=== PATIENT | male | born 1990 | race African-American/Black ===

== ENCOUNTER 2021-03-17 07:15 | Emergency (ER) | payer MEDICAID ==
[~2021-03-17] VITALS: Ht 188 cm; Wt 88.3 kg
[2021-03-17] MEDS ORDERED: KEPPRA750 MG PO (07:29)
[2021-03-17] MEDS ORDERED: ATIVAN1 MG PO (08:45)
[2021-03-17] MEDS ORDERED: ONDANSETRON ODT4 MG PO (08:45)
== END 2021-03-17 08:54 | disposition home or self-care (01) ==
LOC: ED 07:15
DX: F11.23 Opioid dependence with withdrawal (principal)
CPT/HCPCS: 99283; A9270; A9270-GY

== ENCOUNTER 2021-04-05 03:07 | Emergency (ER) | payer MEDICAID ==
[~2021-04-05] VITALS: Ht 188 cm; Wt 87.5 kg
[~2021-04-05 03:07] MED LIST: ATIVAN1 MG PO; KEPPRA750 MG PO; ONDANSETRON ODT4 MG PO
--- OUTSIDE RECORDS SUMMARY | 2021-04-05 03:16 | XMS ---
PreManage Notification: [facility] Security [employer] Events No recent Security Events currently on file CRITERIA MET - [facility] - 2 Visits in 30 Days CARE PROVIDERS There are no care providers on record at this time. [place] has no Care Guidelines for this patient. Khurram VISIT COUNT (12 MO.) [address] [place], [place] [address]Isaias TOTAL 6 NOTE: Visits indicate total known visits. ED/UCC VISIT TRACKING (12 MO.) [facility] [place] [facility] COMPLAINT: - N/V, DIAHRRHEA 03/17/2021 07:16 [facility] [place] TYPE: Emergency COMPLAINT: - HOT/COLD,BODY ACHES DIAGNOSES: - Opioid dependence with withdrawal 11/05/2020 13:27 [facility] TYPE: Emergency DIAGNOSES: 1. Bronchitis, not specified as acute or chronic 1. Cough 2. 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 Cough 1. Acute bronchitis, unspecified 2. Contact with and (suspected) exposure to COVID19 09/03/2020 03:12 [facility] TYPE: Emergency DIAGNOSES: 1. Unspecified convulsions 2. Diarrhea, unspecified 3. Vomiting, unspecified 4. Elevated white blood cell count, unspecified 5. [facility]okalemia [facility] COMPLAINT: - Boil on leg DIAGNOSES: 1. Cutaneous abscess of left lower limb 1. Other specified soft tissue disorders INPATIENT VISIT TRACKING (12 MO.) No inpatient visits to display in this time frame [id number]
[2021-04-05] MEDS ORDERED: ZOFRAN4 MG PO (05:53)
== END 2021-04-05 06:10 | disposition home or self-care (01) ==
LOC: ED 03:07
DX: F11.23 Opioid dependence with withdrawal (principal)
CPT/HCPCS: 80053; 81001; 83690; 85025; 96374; 96376; 99284-25; A9270; J2405; J7030